=== PATIENT | female | born 2000 | race Caucasian/White ===

== ENCOUNTER → 2024-03-14 | Outpatient (CLI) | payer MEDICAID, OTHER ==
[2024-03-14 23:27] LABS: Basophils # (A) 0.06 X 10*3/uL (0.00-0.10); Basophils % (A) 0.6 %; Eosinophils # (A) 0.16 X 10*3/uL (0.04-0.35); Eosinophils % (A) 1.7 %; HCT 47.9 % (37.2-46.3); HGB 16.2 g/dL (12.0-15.0); Lymphocytes % (A) 32.4 %; MCH 28.4 pg (27.0-32.0); MCHC 33.8 g/dL (32.0-37.0); MCV 83.9 FL (80.0-97.0); Mean Platelet Volume 10.8 FL (9.5-12.2); Monocytes % (A) 8.4 %; NRBC Per 100 WBC 0 X 10*3/uL (0.00-0.01); Neutrophils # (A) 5.41 X 10*3/uL (1.80-7.70); Neutrophils % (A) 56.5 %; Platelet Count 361 X 10*3/uL (140-440); RBC 5.71 X 10*6/uL (4.10-5.20); RDW 11.9 % (11.5-14.5); WBC 9.57 X 10*3/uL (4.50-10.00)
[2024-03-14 23:36] LABS: Appearance,Urine Cloudy (Clear); Bilirubin,Urine Negative (Negative); Blood,Urine Negative (Negative); Color,Urine Yellow (Yellow); Ketones,Urine Negative (Negative); Nitrite,Urine Negative (Negative); Specific Gravity,Urine 1.023 (1.001-1.030); Urobilinogen,Urine 0.2 E.U./DL
[2024-03-14 23:49] LABS: Bacteria,Urine 1+ (None Seen); Calcium Oxalate Crystals,Urine Present (None Seen)
[2024-03-15 07:52] LABS: ALT 11 U/L (8-44); AST 13 U/L (13-35); Albumin 4.7 g/dL (3.8-4.9); Albumin/Globulin Ratio 2.04 Ratio (1.60-3.17); Alkaline Phosphatase 98 U/L (41-126); Amylase 59 U/L (23-121); Blood Urea Nitrogen 8.1 mg/dL (9.0-27.0); Calcium 9.6 mg/dL (8.7-10.3); Carbon Dioxide 23.3 mmol/L (21.6-31.8); Chloride 105 mmol/L (96-109); Globulin 2.3 g/dL (1.6-3.3); Glucose 80 mg/dL (70-110); HCG,Quantitative Serum <3.0 mIU/mL (0.0-6.0); Lipase 26 U/L (14-63); Potassium 3.5 mmol/L (3.5-5.5); Sodium 143 mmol/L (135-145); Total Bilirubin 0.3 mg/dL (0.3-1.2)
== END | disposition home or self-care (01) ==
LOC: LABWHC1 11:13
PROVIDERS: ATTEND Family Medicine
DX: R11.0 Nausea (principal)
CPT/HCPCS: 36415; 80053; 81001; 82150; 83690; 84702; 85025

== ENCOUNTER → 2024-03-27 | Outpatient (CLI) | payer MEDICAID, OTHER ==
--- NOTE | 2024-03-27 09:34 | US ---
EXAMINATION TYPE: US abdomen complete DATE OF EXAM: 03/27/2024 COMPARISON: NONE CLINICAL INDICATION: Female, 23 years old with history of R11.0 NAUSEA; TECHNIQUE: Multiple sonographic images of the abdomen are obtained. FINDINGS: EXAM MEASUREMENTS: Liver Length: 13.6 cm Gallbladder Wall: 0.2 cm CBD: 0.4 cm Spleen: 11.1 cm Right Kidney: 9.4 x 4.1 x 4.4 cm Left Kidney: 9.1 x 3.8 x 4.4 cm Pancreas: visualized portions wnl, limited by overlying midline bowel gas Liver: wnl Gallbladder: wnl Evidence for sonographic Diaz's sign: no CBD: wnl Spleen: wnl Right Kidney: wnl Left Kidney: wnl Upper IVC: wnl Abd Aorta: visualized portions wnl, limited by overlying midline bowel gas The liver is homogenous. The visualized portions of the intrahepatic portion of the IVC and proximal abdominal aorta are within normal limits. There is no evidence of cholelithiasis. Common bile duct is unremarkable. The visualized portions of the pancreas are homogenous. The spleen is unremarkabl e. Kidneys are symmetric and free of hydronephrosis. No renal lesions are seen. IMPRESSION: No ultrasound evidence for acute process.
== END | disposition home or self-care (01) ==
LOC: RADUSWWP 07:07
PROVIDERS: ATTEND Family Medicine
DX: R11.0 Nausea (principal)
CPT/HCPCS: 76700